=== PATIENT | female | born 1960 | race Caucasian/White ===

== ENCOUNTER 2018-09-03 06:17 | Day surgery (SDC) | payer OTHER ==
[~2018-09-03] VITALS: Ht 154.9 cm; Wt 84.0 kg
[2018-09-03] MEDS ORDERED: LIDOCAINE 4% 50 ML SOLUTION TP ONE (06:18)
[2018-09-03] MEDS ORDERED: LIDOCAINE 2% 11 ML JELLY TP ONE (06:18)
[2018-09-03] MEDS ORDERED: ALBUTEROL SULFATE 2.5 MG/0.5 ML NEB SOLUTION NEB ONE (06:18)
[2018-09-03] MEDS ORDERED: BENZOCAINE 20% 50 MCG/SPRAY 57 GM TP ONE (06:18)
[2018-09-03] MEDS ORDERED: SODIUM CHLORIDE 0.9% 1,000 ML IV ONE ×2 (06:30→06:40)
[2018-09-03] MEDS ORDERED: OMEP20 PO (07:04)
[2018-09-03] MEDS ORDERED: METF-960 PO (07:04)
[2018-09-03] MEDS ORDERED: VITA400T9 PO (07:04)
[2018-09-03] MEDS ORDERED: OMEG10005 PO (07:04)
[2018-09-03] MEDS ORDERED: EZET10 PO (07:04)
[2018-09-03] MEDS ORDERED: ATOR40TA28 PO (07:04)
[2018-09-03] MEDS ORDERED: ERGO2000 PO (07:04)
[2018-09-03] MEDS ORDERED: SITA100 PO (07:04)
[2018-09-03] MEDS ORDERED: LOSA50TA64 PO (07:04)
[2018-09-03 07:53] LABS: GLUCOMETER DEV NAME(LOC) SDS.; GLUCOSE,POINT OF CARE 113 MG/DL (70-110)
[2018-09-03] MEDS ORDERED: MIDAZOLAM HCL 2 MG/2 ML VIAL ONE (07:57)
[2018-09-03] MEDS ORDERED: FentaNYL CITRATE-PF 100 MCG/2 ML VIAL ONE (07:58)
[2018-09-03] MEDS ORDERED: MethylPREDNISolone SOD SUCC 125 MG/2 ML VIAL ONE (08:41)
[2018-09-03] MEDS ORDERED: MethylPREDNISolone SOD SUCC 125 MG/2 ML VIAL IVP ONE (08:45)
[2018-09-03] MEDS ORDERED: OXYGEN THERAPY IH SCH (20:00)
== END 2018-09-03 10:20 | disposition home or self-care (01) ==
LOC: SURGERY 06:17
PROVIDERS: ATTEND Internal Medicine Critical Care Medicine
DX: J38.4 Edema of larynx (principal); B37.0 Candidal stomatitis; I10 Essential (primary) hypertension; E78.00 Pure hypercholesterolemia, unspecified; Z90.710 Acquired absence of both cervix and uterus
CPT/HCPCS: 31623; 31624; 71045; 82962; 87015; 87070; 87077; 87101; 87186; 87205; 87206; 87220; 88108; 88312; 93005; J2250; J2930; J3010; J7030

== ENCOUNTER 2024-02-17 07:07 | Day surgery (SDC) | payer MEDICARE, OTHER ==
[~2024-02-17] VITALS: Ht 154.9 cm; Wt 84.0 kg
[~2024-02-17 07:07] MED LIST: ATOR40TA28 PO; ERGO2000 PO; EZET10TA57 PO; LOSA-382 PO; METF-1211 PO; OMEG100014 PO; OMEP20 PO; SITA100 PO; SODIUM CHLORIDE 0.9% 1,000 ML ONE; VITA400T9 PO
[2024-02-17] MEDS ORDERED: FentaNYL CITRATE PF 100 MCG/2 ML VIAL ONE (08:30)
[2024-02-17] MEDS ORDERED: MIDAZOLAM HCL 2 MG/2 ML VIAL ONE (08:30)
[2024-02-17] MEDS: SODIUM CHLORIDE 0.9% 1,000 ML IV ONE (08:50)
[2024-02-17 09:01] LABS: GLUCOMETER DEV NAME(LOC) SDS.; GLUCOSE,POINT OF CARE 93 MG/DL (70-110)
[2024-02-17 10:00] VITALS: PULSE 68; RESP 16; O2SAT 98
[2024-02-17] MEDS: MethylPREDNISolone SOD SUCC 125 MG/2 ML VIAL IVP ONE (10:37)
[2024-02-17] MEDS ORDERED: LIDOCAINE 4% 50 ML SOLUTION ONE (12:00)
[2024-02-17] MEDS ORDERED: BENZOCAINE 20% 50 MCG/SPRAY 57 GM ONE (12:00)
[2024-02-17] MEDS ORDERED: LIDOCAINE 2% 11 ML JELLY ONE (12:00)
[2024-02-17] MEDS ORDERED: ALBUTEROL SULFATE 2.5 MG/0.5 ML NEB SOLUTION NEB ONE (12:00)
== END 2024-02-17 13:00 | disposition home or self-care (01) ==
LOC: SURGERY 07:07
PROVIDERS: ATTEND Internal Medicine Critical Care Medicine
DX: R05.3 Chronic cough (principal); R06.2 Wheezing; R04.2 Hemoptysis; R06.1 Stridor; E78.00 Pure hypercholesterolemia, unspecified; G47.30 Sleep apnea, unspecified; Z90.710 Acquired absence of both cervix and uterus
CPT/HCPCS: 31623; 82962; 87206; 87101; 87220; 87070; 88108; 31624; 94640; 71045; 87015; J3010; J2250; J7030; J7613; Z7610